=== PATIENT | female | born 1940 | race African-American/Black ===

== ENCOUNTER → 2017-06-28 | Outpatient (CLI) | payer MEDICARE, MEDICAID ==
[~2017-06-28] MED LIST: ASPI-1159 PO; BISA-81 PO; CYCL30DR EACHEYE; DOCU-138 PO; ERYTHROMYCIN OPTHALM EACHEYE; FERR-63 PO; FLUO-123 PO; FURO40TA5 PO; ISOS60TA4 PO; KDUR10 PO; LEVO100T9 PO; LOSA1TAB37 PO; POTA10TA11 PO; PREG50CA PO; SALS750T20 PO; SOLI5TAB PO; ZET10 PO; [UNRECOGNIZED DRUG - CODE] EACHEYE
== END | disposition home or self-care (01) ==
LOC: MAMMO 11:56
PROVIDERS: ATTEND Specialist
DX: Z12.31 Encounter for screening mammogram for malignant neoplasm of breast (principal)
CPT/HCPCS: G0202